=== PATIENT | female | born 1990 | race Caucasian/White ===

== ENCOUNTER 2017-01-08 19:49 | Emergency (ER) | payer OTHER ==
--- NOTE | 2017-01-08 20:46 | DIAGNOSTIC IMAGING REPORT ---
PROCEDURE: XR CHEST 2 VIEW INDICATION: FEVER TECHNIQUE: PA and lateral view. COMPARISON: None. FINDINGS: Lungs are clear. Cardiovascular structures are normal. Bilateral nipple piercing devices. Bony thorax is unremarkable. IMPRESSION: 1. Negative chest.
--- NOTE | 2017-01-08 21:16 | ED ORDER SUMMARY ---
..... Patient: BUSTER TILLMAN OrderSheet [facility] VisitID: [id number] [address] [place] [address] 26y, F Registration Date/Time: 01/08/2017 ORDER SHEET Weight: 88.4 kg (stated) Allergies: No Known Drug Allergy GENERAL ORDERS: POC - Urine hCG (20:04 01/08/2017 EKoroleva P.A.-C) (Ack 20:06 CHagerty ER Utilization Review Specialist) (20:13 DDean R.N.) Chest 2V Urgent (20:05 01/08/2017 EKoroleva P.A.-C) (Ack 20:06 [facility] ER Utilization Review Specialist) (20:41 RFay) EKG - ER Stat (21:03 01/08/2017 EKoroleva P.A.-C) (Ack 21:08 [facility] ER Utilization Review Specialist) (21:16 [facility]ty ER Utilization Review Specialist) MEDICATION ORDERS: DuoNeb Neb Tx 1 unit dose (NOW) (20:05 01/08/2017 EKoroleva P.A.-C) (Ack 20:06 [facility]ty ER Utilization Review Specialist) (20:13 ASingh) IV FLUIDS: ORDER SHEET NOTES: [Electronically signed by Analia Robison P.A.-C (21:29 01/08/2017)] [Electronically signed by Kinza Mcneil R.N. (22:18 01/08/2017)] [Electronically locked/signed by Kinza Mcneil R.N. (22:18 01/08/2017)]
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
--- NOTE | 2017-01-08 21:16 | ED ORDER SUMMARY ---
..... Patient: BUSTER TILLMAN OrderSheet [facility] VisitID: [id number] [address] [place] [address] 26y, F Registration Date/Time: 01/08/2017 ORDER SHEET Weight: 88.4 kg (stated) Allergies: No Known Drug Allergy GENERAL ORDERS: POC - Urine hCG (20:04 01/08/2017 EKoroleva P.A.-C) (Ack 20:06 [facility]ty ER Insurance Special Agent) (20:13 DDean R.N.) Chest 2V Urgent (20:05 01/08/2017 EKoroleva P.A.-C) (Ack 20:06 [facility] ER Insurance Special Agent) (20:41 RFay) EKG - ER Stat (21:03 01/08/2017 EKoroleva P.A.-C) (Ack 21:08 [facility] ER Insurance Special Agent) (21:16 [facility]ty ER Insurance Special Agent) MEDICATION ORDERS: DuoNeb Neb Tx 1 unit dose (NOW) (20:05 01/08/2017 EKoroleva P.A.-C) (Ack 20:06 [facility] ER Insurance Special Agent) (20:13 ASingh) IV FLUIDS: ORDER SHEET NOTES: [Electronically signed by Analia Robison P.A.-C (21:29 01/08/2017)] [Electronically signed by Kinza Mcneil R.N. (22:18 01/08/2017)] [Electronically locked/signed by Kinza Mcneil R.N. (22:18 01/08/2017)]
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
--- NOTE | 2017-01-08 22:18 | ED DISCHARGE INSTRUCTIONS ---
Patient: BUSTER TILLMAN General Instructions [facility] VisitID: [id number] [place] [address] 26y, F Registration Date/Time: 01/08/2017 Mild persistent asthma. INSTRUCTIONS Do not work today. (your chest xray looks great). Prescription Medications: Medrol Dosepak: take according to package directions. Dispense one (1) dosepak. No refills. Substitution is permissible. Follow-up: Follow up with your doctor in three days. ADDITIONAL INFORMATION Asthma [Adult] Asthma is a disease where the small air passages within the lung go into spasm and restrict the flow of air. Inflammation and swelling of the airways cause further restriction. During an acute asthma attack, these factors cause difficulty breathing, wheezing, cough and chest tightness. An asthma attack can be triggered by many things. Common triggers include the common cold, bronchitis, pneumonia, irritants such as smoke or pullutants in the air, emotional upset and heavy exercise. Inmany adults with asthma, allergies todust, mold, pollen and animal dander can cause an asthma attack. Skipping doses of daily asthma medicine can also bring on an asthma attack. Asthma can be controlled with proper medicines and decreased exposure to known allergens. Home Care: Take prescribed medicine exactly at the times advised. If you have a hand-held inhaler or aerosol breathing medicine, do not use it more than once every four hours, unless told to do so. (If you need this medicine more than every four hours, you may need to return to the Emergency Room.) If prescribed an antibiotic or prednisone, take all of the medicine even if you are feeling better after a few days. Do not smoke. Avoid being exposed to the smoke of others. Some persons with asthma have worsening of their symptoms when they take aspirin and non-steroidal medicines like ibuprofen (Motrin, Advil) and naproxen (Aleve, Naprosyn). Talk to your doctor if you think this may apply to you. Acetaminophen (Tylenol)should be safe to use. Follow Up with your doctor, or as advised by our staff. Always bring all of your current medicines with you for your doctor to see. If you do not already have one, talk to your doctor about developing a personalized "Asthma Action Plan." [NOTE: A pneumococcal vaccine and yearly flu shot (every fall) are recommended. Ask your doctor about this.] Get Prompt Medical Attention if any of the following occur: Increased wheezing or shortness of breath Need to use your inhalers more often than usual without relief Fever of 100.4F (38C) or higher, or as directed by your healthcare provider Coughing up lots of dark-colored or bloody sputum (mucus) Chest pain with each breath You do not start to improve within 24 hours Call 911 If Any Of The Following Occur : Trouble walking or talking because of shortness of breath If you use a peak flow meter andyou are still in the red zone (less than 50 percent) 15 minutes after using inhaler medication Lips or fingernails turning urias or blue You have been given the following additional information: Asthma, Acute (Adult) Do not work today. (Electronically signed by Analia Robison P.A.-C 01/08/2017 21:29)
--- NOTE | 2017-01-08 22:18 | ED MAR SUMMARY ---
..... Medication Administration Record [facility] [address] [place] [address] Patient: BUSTER TILLMAN Visit ID: [id number] 26y, F Weight: 88.4 kg Height/Length: 69 in BMI: 28.8 ALLERGIES: No Known Drug Allergy Given 20:13 01/08/2017 Maulik Pena, Medication Administered: DUONEB [NEB TX] (IPRATROPIUM-ALBUTEROL), Dose: 1 unit dose Neb TX. Medication Ordered: DuoNeb Neb Tx 1 unit dose (NOW).
--- NOTE | 2017-01-08 22:18 | ED MED RECONCILIATION SUMMARY ---
Patient: BUSTER TILLMAN Medication Reconciliation Report [facility] VisitID: [id number] [address] [place] [address] 26y, F Registration Date/Time: 01/08/2017 Weight: 88.4 kg Height/Length: 69 in. BMI: 28.8 ALLERGIES: No Known Drug Allergy The patient's Home Medications are listed below: THE FOLLOWING MEDICATIONS NEED TO BE RECONCILED: Adderall Oral (20 mg) 1 tablet, daily The source(s) of the original Home Medication information: Not obtained. The following Medications were given to the patient in the Emergency Department: Duoneb [Neb Tx] Neb TX 1 unit dose, administered: 01/08/2017 8:13:00 PM The following Medications were prescribed to the patient: Medrol Dosepak: take according to package directions. Dispense one (1) dosepak. No refills. Substitution is permissible. -- Analia Robison, PReynaAJovanC
--- NOTE | 2017-01-08 22:18 | ED MED RECONCILIATION SUMMARY ---
Patient: BUSTER TILLMAN Medication Reconciliation Report [facility] VisitID: [id number] [address] [place] [address] 26y, F Registration Date/Time: 01/08/2017 Weight: 88.4 kg Height/Length: 69 in. BMI: 28.8 ALLERGIES: No Known Drug Allergy The patient's Home Medications are listed below: THE FOLLOWING MEDICATIONS NEED TO BE RECONCILED: Adderall Oral (20 mg) 1 tablet, daily The source(s) of the original Home Medication information: Not obtained. The following Medications were given to the patient in the Emergency Department: Duoneb [Neb Tx] Neb TX 1 unit dose, administered: 01/08/2017 8:13:00 PM The following Medications were prescribed to the patient: Medrol Dosepak: take according to package directions. Dispense one (1) dosepak. No refills. Substitution is permissible. -- Analia Robison, PReynaAJovanC
--- NOTE | 2017-01-08 22:18 | ED MAR SUMMARY ---
..... Medication Administration Record [facility] [address] [place] [address] Patient: BUSTER TILLMAN Visit ID: [id number] 26y, F Weight: 88.4 kg Height/Length: 69 in BMI: 28.8 ALLERGIES: No Known Drug Allergy Given 20:13 01/08/2017 Maulik Pena, Medication Administered: DUONEB [NEB TX] (IPRATROPIUM-ALBUTEROL), Dose: 1 unit dose Neb TX. Medication Ordered: DuoNeb Neb Tx 1 unit dose (NOW).
== END 2017-01-08 21:15 | disposition home or self-care (01) ==
LOC: ED SRH 19:49
DX: J45.30 Mild persistent asthma, uncomplicated (principal); Z87.891 Personal history of nicotine dependence